=== PATIENT | male | born 1935 | race African-American/Black ===

== ENCOUNTER 2016-10-27 05:54 | Day surgery (SDC) | payer MEDICARE, OTHER ==
[~2016-10-27] VITALS: Ht 162.6 cm; Wt 70.8 kg
[2016-10-27] VITALS (10 sets, daily range): BP systolic 134–172; BP diastolic 78–93
[~2016-10-27 05:54] MED LIST: ACETAZOLAMIDE500 MG ORAL; ATORVASTATIN CA40 MG ORAL; BRIMONIDINE TART5 ML BOTH EYES; CILOXAN 0.3% O1 DROP RIGHT EYE; Cyclopentolate 1% Opth Sol ONE; DEXILANT60 MG ORAL; Flurbiprofen 0.03% Opth Sol 2.5ml ONE; LOSARTAN POTAS100 MG ORAL; Phenylephrine 2.5% Op Soln ONE; TAMSULOSIN HCL0.4 MG ORAL; TIMOPTIC 0.5%1 DROP BOTH EYES; TRAVATAN Z5 ML BOTH EYES; Vigamox Opth Soln ONE; WARFARIN SODIUM5 MG ORAL
[2016-10-27] MEDS ORDERED: Pred Forte 1% Opth Susp 1ml RIGHT EYE SCH (06:00)
[2016-10-27] MEDS: Flurbiprofen 0.03% Opth Sol 2.5ml RIGHT EYE SCH ×3 (06:27→06:48)
[2016-10-27] MEDS: Cyclopentolate 1% Opth Sol RIGHT EYE SCH ×3 (06:27→06:48)
[2016-10-27] MEDS: Phenylephrine 2.5% Op Soln RIGHT EYE SCH ×3 (06:27→06:48)
[2016-10-27] MEDS: Vigamox Opth Soln RIGHT EYE SCH ×3 (06:27→06:48)
[2016-10-27] MEDS ORDERED: Lidocaine 1% MPF 10mg/ml 5ml ONE (07:00)
[2016-10-27] MEDS ORDERED: Sterile Water Irrig 1000ml IRRIG ONE (07:00)
[2016-10-27] MEDS ORDERED: Midazolam 2mg/2ml Inj ONE (07:00)
[2016-10-27] MEDS ORDERED: NS Irrig 1000ml ONE (07:00)
[2016-10-27] MEDS ORDERED: Alfentanil 2ml Inj ONE (07:00)
[2016-10-27] MEDS ORDERED: LR 1000ml ONE (07:00)
[2016-10-27] MEDS ORDERED: Propofol 10mg/ml 20ml IV ONE (07:00)
[2016-10-27] MEDS ORDERED: BSS 500ml btl ONE (07:10)
[2016-10-27] MEDS ORDERED: Maxitrol Opth Oint 3.5gm ONE (07:10)
[2016-10-27] MEDS ORDERED: Kenalog-40 1ml Vial ONE (07:10)
[2016-10-27] MEDS ORDERED: Tetracaine 0.5% Opth Soln ONE (07:11)
[2016-10-27] MEDS ORDERED: Dexamethasone 4mg/ml vial ONE (07:11)
[2016-10-27] MEDS ORDERED: EPINEPHrine 1mg/1ml Amp ONE (07:11)
[2016-10-27] MEDS ORDERED: Kenalog-10 5ml Inj ONE (07:11)
[2016-10-27] MEDS ORDERED: Povidone-Iodine 5% opth solution ONE (07:12)
[2016-10-27] MEDS ORDERED: Lidocaine 2% MPF 5ml Vial INJ ONE (07:12)
[2016-10-27] MEDS ORDERED: Sodium Hyaluronate 10 mg/ml 0.85ml ONE (07:12)
[2016-10-27] MEDS ORDERED: Bupivacaine 0.75% 30ml vial INJ ONE (07:12)
[2016-10-27] MEDS ORDERED: BSS 15ml BTL ONE (07:12)
[2016-10-27] MEDS ORDERED: Carbachol 0.01% Op Soln 1.5ml vial ONE (07:19)
[2016-10-27] MEDS ORDERED: LR 1000ml 1,000 ML IVLG SCH (07:55)
--- NOTE | 2016-10-27 07:59 | Anethesia Preoperative Eval ---
Anesthesia Pre-op PMH/ROS General Date of Evaluation: Oct 27, 2016 Time of Evaluation: 07:26 Anesthesiologist: Xander ASA Score: ASA 3 Mallampati Score Class I : Soft palate, uvula, fauces, pillars visible Class II: Soft palate, uvula, fauces visible Class III: Soft palate, base of uvula visible Class IV: Only hard plate visible Mallampati Classification: Class II Surgeon: Mehreen Diagnosis: Retained Lens, OD Surgical Procedure: Vitrectomy OD Anesthesia History: none Family History: no anesthesia problems Allergies: Coded Allergies: No Known Allergies (Unverified , 10/24/16) Medications: see eMAR Past Medical History Cardiovascular: Reports: HTN, other - HL Gastrointestinal/Genitourinary: Reports: GERD, other - BPH Neurologic/Psychiatric: Reports: CVA HEENT: Reports: cataract (L), cataract (R) PSxH Narrative: Eye SX Anesthesia Pre-op Phys. Exam Physician Exam Last Vital Signs Date Time Temp Pulse Resp B/P (MAP) Pulse Ox O2 Delivery O2 Flow Rate FiO2 10/27/16 06:24 96.8 72 20 165/86 98 Room Air Constitutional: NAD Neurologic: CN 2-12 intact Cardiovascular: RRR Respiratory: CTA Gastrointestinal: S/NT/ND Airway Exam Mallampati Score: Class II MO: limited ROM: limited Teeth: missing, intact Anesthesia Pre-op A/P Risk Assessment & Plan Assessment: ASA 3 Plan: GA Status Change Before Surgery: No Olvin Terrell MD Oct 27, 2016 07:59
[2016-10-27] MEDS ORDERED: LORazepam Inj 2mg/ml 1ml IV PRN (08:00)
[2016-10-27] MEDS ORDERED: Ketorolac 30mg Inj IV PRN (08:00)
[2016-10-27] MEDS ORDERED: Meperidine 25mg/0.5ml Inj (FOR RIGORS ONLY) IV PRN (08:00)
[2016-10-27] MEDS ORDERED: Ketorolac 60mg Inj IV PRN (08:00)
[2016-10-27] MEDS ORDERED: Hydromorphone 0.5mg/0.5ml inj IVP PRN (08:00)
[2016-10-27] MEDS ORDERED: DiphenhydrAMINE 50mg/ml Inj IVP PRN (08:00)
[2016-10-27] MEDS ORDERED: Atropine Inj 1mg/10ml Syr IV PRN (08:00)
[2016-10-27] MEDS ORDERED: Midazolam 2mg/2ml Inj IVP PRN (08:00)
[2016-10-27] MEDS ORDERED: fentaNYL 100 mcg/2 mL IV PRN (08:00)
[2016-10-27] MEDS ORDERED: oxyCODONE HCL/Acetaminophen 5/325mg ORAL PRN (08:00)
[2016-10-27] MEDS ORDERED: Norco 7.5mg/325mg tab ORAL PRN (08:00)
[2016-10-27] MEDS ORDERED: Metoclopramide 10mg/2ml Inj IVP PRN (08:00)
[2016-10-27] MEDS ORDERED: Norco 5mg/325mg tab ORAL PRN ×2 (08:00→12:01)
--- NOTE | 2016-10-27 08:00 | Immediate Post-Op Evaluation ---
Immediate Post-Op Evalulation Immediate Post-Op Evalulation Procedure: Vitrectomy OD Date of Evaluation: Oct 27, 2016 Time of Evaluation: 09:28 IV Fluids: 500 LR Blood Products: 0 Estimated Blood Loss: 2 Urinary Output: 0 Blood Pressure Systolic: 134 Blood Pressure Diastolic: 78 Pulse Rate: 61 Respiratory Rate: 16 O2 Sat by Pulse Oximetry: 100 Temperature (Fahrenheit): 97.2 Pain Score (1-10): 1 Nausea: No Vomiting: No Complications 0 Patient Status: awake, reacts, patent, extubated, none Hydration Status: adequate Olvin Terrell MD Oct 27, 2016 08:00
--- NOTE | 2016-10-27 08:01 | 48 Hour Post Anesthesia Eval ---
Post Anesthesia Evaluation Procedure: Vitrectomy OD Date of Evaluation: Oct 27, 2016 Time of Evaluation: 11:38 Blood Pressure Systolic: 156 0: 84 Pulse Rate: 57 Respiratory Rate: 18 Temperature (Fahrenheit): 98.2 O2 Sat by Pulse Oximetry: 100 Airway: patent Nausea: No Vomiting: No Pain Intensity: 1 Hydration Status: adequate Cardiopulmonary Status: Stable Mental Status/LOC: patient returned to baseline Follow-up Care/Observations: 0 Post-Anesthesia Complications: 0 Follow-up care needed: ready to discharge Olvin Terrell MD Oct 27, 2016 08:01
[2016-10-27] MEDS ORDERED: Pilocarpine 4% Opth Soln ONE (08:48)
--- NOTE | 2016-10-27 09:18 | Pre-Procedure Note/Attestation ---
Pre-Procedure Note/Attestation Complete Prior to Procedure Planned Procedure: right Procedure Narrative: PPV, reinforcement of cataract wound, removal of retained lens material, removal of dislocated IOL OD Insertion of AC IOL, Dr Gonzales Indications for Procedure Pre-Operative Diagnosis: Dislocated IOL, retained lens material R eye Attestation I attest that I discussed the nature of the procedure; its benefits; risks and complications; and alternatives (and the risks and benefits of such alternatives ), prior to the procedure, with the patient (or the patient's legal entry level sales representative). I attest that, if there was a reasonable possibility of needing a blood transfusion, the patient (or the patient's legal entry level sales representative) was given the [place] [facility] [employer] [facility] standardized written summary, pursuant to the [place] Blood Safety Act ([place] Health and Safety Code # 1645, as amended). I attest that I re-evaluated the patient just prior to the surgery and that there has been no change in the patient's H&P, except as documented below: DANA MCLEOD Oct 27, 2016 09:18
--- NOTE | 2016-10-27 09:21 | Brief Operative Note ---
Immediate Post Operative Note Operative Note Chief Complaint: Large floaters in vision R eye Pre-op Diagnosis: Dislocated IOL, retained lens material R eye Procedure: PPV, reinforcement of cataract wound, removal of retained lens fragments, removal of dislocated IOL OD Insertion of AC IOL, Dr Adair Post-op Diagnosis: same as pre-op Surgeon: mana veronica Collection Agent: jeremías adair Anesthesiologist: Xander Anesthesia: general Specimen: none Complications: none Condition: stable Fluids: None Estimated Blood Loss: none Drains: none Implant(s) used?: Yes - 16 D AC lens DANA VERONICA Oct 27, 2016 09:21
--- NOTE | 2016-10-27 15:00 | Pre-op HX & Phy Repo 2 SIG ---
DATE OF SURGERY: 10/26/2016. PREOPERATIVE DIAGNOSIS: Dislocated intraocular lens with retained cataract fragments, right eye. BRIEF NOTE: This is a first [place] admission for this patient, who is a very nice 81-year-old gentleman, who underwent cataract surgery on 10/20/2016, complicated by subsequent dislocation of the intraocular lens. He is admitted for co-surgery with Dr. Gonzales in which the retained lens fragments will be removed and the intraocular lens repositioned or replaced. PAST OCULAR HISTORY: Remarkable for longstanding exotropia. He also has significant glaucoma that has been treated for some time. He has a history of previous cataract surgery in the left eye, which was successfully completed. PAST MEDICAL HISTORY: Remarkable for hypertension. He does not smoke or drink. He has also had prostate procedures. MEDICATIONS: He is currently on Lipitor, warfarin, amlodipine, and Dexilant. ALLERGIES: He has no known allergies. PHYSICAL EXAMINATION: EYES: Best vision at the time of admission was light perception with projection in the right eye and 20/50-3 in the left. The pressures were 21 and 12. There was wide angle exotropia of roughly 45 diopters. The anterior segment on the right showed a fresh cataract wound at the 9 o'clock position with a suture in place. There was edema locally in the cornea at this site. The peripheral iridotomy was seen. A 1+ flare was seen in the anterior chamber. There was cortical material behind remnants of the lens capsule, mainly temporally. No implant was seen. The left anterior segment showed a posterior chamber lens in good position. Fundus exam of the right eye showed a significant glaucomatous cupping at least 0.8. There was scattered lens debris as well as a dislocated IOL capsular complex at the 6 o'clock position. The retina was attached. The left fundus was quiet except for significant cupping at about 0.7. General physical examination was done by the patient's general physician. ASSESSMENT: Dislocated intraocular lens and retained lens fragments, right eye. PLAN: The plan is to perform a pars plana vitrectomy with removal of lens fragments and reposition or replacement of the posterior chamber lens with the assistance of Dr. Gonzales. The risks and benefits of surgery were gone over with the patient with potential for infection, hemorrhage, glaucoma, and remote possibility of loss of the eye. The risk of anesthesia was discussed. The patient understands and consents to the surgery, which will be performed on Thursday. Bill Verde M.D. DR: BRENDA JOB#: [id number] CC:
--- NOTE | 2016-10-28 03:00 | Operative Note - Dictated ---
DATE OF OPERATION: 10/27/2016 PREOPERATIVE DIAGNOSIS: Dislocated intraocular lens with retained lens fragments, right eye. POSTOPERATIVE DIAGNOSIS: Dislocated intraocular lens with retained lens fragments, right eye. PROCEDURES: 1. By Dr. Verde, pars plana vitrectomy. 2. Reinforcement of cataract wound. 3. Removal of retained lens fragments. 4. Removal of dislocated intraocular lens, right eye. 5. The surgery performed by Dr. Gonzales was insertion of anterior chamber secondary lens, right eye. Please refer to his operative report. JUSTIFICATION FOR SURGERY: This 81-year-old gentleman underwent cataract surgery last week that was complicated by dislocation of the intraocular lens and rupture of the lens capsule. He was admitted for repair. BRIEF NOTE: The patient was brought to the operating room and placed on the operating room table in the supine position. After a time out was agreed upon by the staff, general LMA anesthesia was induced by Dr. Terrell. Retrobulbar and Van Lint blocks were then given in the standard way to limit the need for intraoperative and postoperative anesthesia. The patient was then prepped and draped in normal manner. A lid speculum was inserted into the right eye. Because of obvious leakage of the superior wound, two interrupted sutures of 10-0 nylon were placed and buried. The wound was noted to be watertight at this point. Using a 23-gauge trocar system, cannulas were placed in all except the inferotemporal quadrant. Infusion secured inferonasally. Vitrectomy was begun at the iris plane removing vitreous debris and capsular remnants that remained within the capsular bag. Using a posterior viewing lens, cortical debris posteriorly and surrounding the lens implant was removed. The intraocular lens was noted to be positioned inferiorly. This was engaged with intra-ocular forceps, both left and right and brought into the anterior chamber. At this juncture, the previously prepared cataract wound was opened and enlarged by Dr. Gonzales, who subsequently removed the lens from the eye and from the field. The case was turned over to Dr. Gonzales at this point, who completed insertion of an anterior chamber lens and suturing of the wound. The eye was reentered posteriorly and remaining vitreous strands that entered into the anterior chamber were removed as well as residual [place] from the anterior chamber. Scleral depression was carefully done and no peripheral breaks, tears, or detachments were seen. The superior cannulas were removed and the wounds closed with 8-0 Vicryl suture. The infusion cannula was also removed and the wound subsequently closed. The eye was reinflated with balanced salt solution to retain a normal pressure. Topical pilocarpine 4%, Vigamox, and prednisolone drops were instilled. Maxitrol ointment was also instilled and the eye was patched and shielded. The patient was then taken to recovery in excellent condition. There were no complications. Bill Verde M.D. DR: ARGENIS JOB#: [id number] CC: Bill Verde M.D.; Fax#: [phone] Xiang Gonzales ; Fax#: [phone]
== END 2016-10-27 11:00 | disposition home or self-care (01) ==
LOC: SUR 05:54
DX: H59.021 Cataract (lens) fragments in eye following cataract surgery, right eye (principal); T85.22XA Displacement of intraocular lens, initial encounter; Y84.8 Other medical procedures as the cause of abnormal reaction of the patient, or of later complication, without mention of misadventure at the time of the procedure; Y92.89 Other specified places as the place of occurrence of the external cause; H50.10 Unspecified exotropia; H40.9 Unspecified glaucoma; I10 Essential (primary) hypertension; K21.9 Gastro-esophageal reflux disease without esophagitis; E78.5 Hyperlipidemia, unspecified; N40.0 Benign prostatic hyperplasia without lower urinary tract symptoms; Z86.718 Personal history of other venous thrombosis and embolism; Z79.01 Long term (current) use of anticoagulants; Z79.899 Other long term (current) drug therapy; Z86.73 Personal history of transient ischemic attack (TIA), and cerebral infarction without residual deficits; Z90.49 Acquired absence of other specified parts of digestive tract
CPT/HCPCS: 66250; 66852; J0171; J0360; J1100; J2250; J2704; J3470; J3490; J7120; V2632; 94003; 94150